=== PATIENT | male | born 1945 | race Caucasian/White ===

== ENCOUNTER 2020-03-14 05:13 | Inpatient (IN) | payer MEDICARE, SELFPAY ==
[2020-03-14] VITALS (24 sets, daily range): BP systolic 134–193; BP diastolic 56–108; PULSE 81–117; RESP 10–38; TEMP 36.2–36.9; O2SAT 91–100; BMI 36.4
--- NOTE | ~2020-03-14 | XR_ITS ---
EXAMINATION: XR chest 2V EXAM DATE: 03/14/2020 06:10 INDICATION: Weakness, rapid heart rate. TECHNIQUE: Frontal and lateral projections of the chest obtained and reviewed. Comparison is made to prior examination from 12/01/2012. FINDINGS: The lungs are clear. There are no pleural effusions. The cardiomediastinal silhouette is within normal limits. There is no pneumothorax suspected. The bones and soft tissues are unremarkab le. IMPRESSION: No acute cardiopulmonary findings. Reviewed, dictated and finalized at location A. NING PROGRAM MANAGER
--- NOTE | 2020-03-14 05:19 | ECG_ITS ---
Measurements Intervals [place] Rate: 120 P: 83 NC: 185 QRS: 40 QRSD: 90 T: 43 QT: 345 QTc: 487 Interpretive Statements SINUS TACHYCARDIA BASELINE ARTIFACT- I, III, AVL ABNORMAL ECG Electronically Signed On 03-14-2020 14:35:27 UPSETTER SETTER UP by Armani Hickman D.O.
--- NOTE | 2020-03-14 05:31 | ED.CHESTPAIN ---
HPI - Chest Pain General Chief Complaint: Chest Pain Stated Complaint: funny feeling in chest History of Present Illness HPI narrative: Patient is a 74-year-old male who presents ER with chest discomfort. Patient reports around 4:30 AM he developed some left-sided chest discomfort. No radiation. Associated with elevated heart rate and elevated blood pressure. Pain has gone down at this time. Reports throughout the day yesterday he was more fatigued than typical and having some mild left-sided back pain. Reports she had a family member do a adjustment on him and he felt like the pain went away. He has no nausea/vomiting/diaphoresis. No infectious symptoms. Denies previous cardiac issues. Related Data Home Medications Medication Instructions Recorded Confirmed blood sugar diagnostic #10 each 04/13/19 02/15/20 lancets 23 gauge #25 each 04/13/19 02/15/20 Allergies Allergy/AdvReac Type Severity Reaction Status Date / Time levofloxacin Allergy Mild HAND RASH Verified 02/15/20 14:07 Penicillins Allergy Unknown UNKNOWN Verified 02/15/20 14:07 Review of Systems Review of Systems: All systems reviewed & are unremarkable except as noted in HPI and below Constitutional: Constitutional: Denies chills, Denies fever(s) and Denies weakness Cardiovascular: Cardiovascular: Reports chest pain and Denies radiating jaw, neck or arm pain Comments: Dyspnea on exertion Respiratory: Respiratory: Denies cough and Reports dyspnea Gastrointestinal: Gastrointestinal: Denies abdominal pain, Denies nausea and Denies vomiting Musculoskeletal: Musculoskeletal: Reports back pain and Denies muscle cramps PMFSH Past Medical History Medical History (Updated 03/14/20 @ 07:02 by Syd Voss MD) Anxiety H/O malignant neoplasm of prostate H/O poliomyelitis Late effects of poliomyelitis Obesity Type 2 diabetes mellitus Surgical History Surgical History (Updated 03/14/20 @ 05:38 by Syd Voss MD) History of prostatectomy Social History Social History (Updated 03/14/20 @ 05:38 by Syd Voss MD) Smoking status: Never smoker Exam Narrative: Exam Narrative: GENERAL: Well-appearing, well-nourished, and in no acute distress. HEAD: Normocephalic, atraumatic. ENT: Mucous membranes moist. CHEST: Clear to auscultation. No respiratory distress. HEART: Tachycardic and regular.. Normal peripheral pulses. ABDOMEN: Soft, nontender, nondistended. EXTREMITIES: Normal range of motion. 1+ edema. SKIN: Warm, dry, no rash. NEURO: Alert and oriented x3. PSYCH: Normal mood and affect. Course Course Emergency Course: Patient informed of results. Accepted by hospitalist and will be seen by Dr. Nichols. Heparin started. Hydralazine for BP. Vital Signs Vital signs: Vital Signs Temperature 98.5 F 03/14/20 05:12 Pulse Rate 117 H 03/14/20 05:12 Respiratory Rate 16 03/14/20 05:12 Blood Pressure 193/108 H 03/14/20 05:12 Pulse Oximetry 96 03/14/20 05:12 Temperature 98.5 F 03/14/20 05:12 Pulse Rate 117 H 03/14/20 05:12 Respiratory Rate 16 03/14/20 05:12 Blood Pressure 193/108 H 03/14/20 05:12 Pulse Oximetry 96 03/14/20 05:12 MDM - Chest Pain Lab Data Result diagrams: 03/14/20 05:34 03/14/20 05:34 Labs: Lab Results 03/14/20 03/14/20 03/14/20 Range/Units 05:34 05:34 05:34 WBC 12.7 H (4.5-10.0) K/mm3 RBC 4.88 (4.6-6.20) M/mm3 Hgb 15.6 (14.0-18.0) g/dL Hct 45.2 (42.0-52.0) % MCV 92.6 (80-100) fl MCH 32.0 (26-34) pg MCHC 34.5 (32-36) g/dl RDW 13.1 (11.5-14.5) % Plt Count 283 (150-375) k/mm3 MPV 10.1 (7.4-10.4) fl Immature Gran % (Auto) 0.4 (0-0.5) % Neut % (Auto) 71.8 (45.5-73.1) % Lymph % (Auto) 16.5 L (18.3-44.2) % [place] % (Auto) 7.2 (2.6-8.5) % Eos % (Auto) 3.4 (0-4.4) % Baso % (Auto) 0.7 (0.2-1.2) % Lymph # (Auto) 2.09 (0.9-3.2) K/mm3 [place] # (Auto) 0.9 H (0.1-
[2020-03-14 05:43] LABS: Basophils Absolute Auto 0.1 K/mm3 (0.0-0.1); Basophils Percent Auto 0.7 % (0.2-1.2); Eosinophils Absolute Auto 0.4 K/mm3 (0-0.3); Eosinophils Percent Auto 3.4 % (0-4.4); Hematocrit 45.2 % (42.0-52.0); Hemoglobin 15.6 g/dL (14.0-18.0); Immature Granulocyte Absolute 0.05 K/mm3 (0.00-0.031); Immature Granulocyte Percent A 0.4 % (0-0.5); Lymphocytes Absolute Auto 2.09 K/mm3 (0.9-3.2); Lymphocytes Percent Auto 16.5 % (18.3-44.2); Mean Corpuscular HGB Conc 34.5 g/dl (32-36); Mean Corpuscular Volume 92.6 fl (80-100); Mean Platelet Volume 10.1 fl (7.4-10.4); Monocytes Absolute Auto 0.9 K/mm3 (0.1-0.6); Monocytes Percent Auto 7.2 % (2.6-8.5); Neutrophils Absolute Auto 9.1 K/mm3 (1.3-6.7); Neutrophils Percent Auto 71.8 % (45.5-73.1); Platelet Count Result 283 k/mm3 (150-375); Red Blood Count 4.88 M/mm3 (4.6-6.20); Red Cell Distribution Width 13.1 % (11.5-14.5); White Blood Count 12.7 K/mm3 (4.5-10.0)
[2020-03-14 05:54] LABS: INR 0.9; Prothrombin Time 13.2 Seconds (11.1-14.7)
[2020-03-14 05:55] LABS: Partial Thromboplastin Time 30.4 SECONDS (22.3-36.8)
[2020-03-14 05:58] LABS: Anion Gap 12 mmol/L (8-16); Blood Urea Nitrogen 13 mg/dL (9-20); Calcium 10.2 mg/dL (8.4-10.2); Carbon Dioxide 25 mmol/L (22-30); Chloride 98 mmol/L (98-107); Estimated CRCL calculation 74 ml/min; Estimated Glomerular Filt Rate > 60; Glucose 181 mg/dL (75-110); Potassium 3.8 mmol/L (3.4-5.0); Sodium 135 mmol/L (137-145)
[2020-03-14 06:01] LABS: D Dimer < 0.22 ug/mL (<0.48)
[2020-03-14] MEDS: hydrALAZINE HCL 20 MG/ML VIAL 10 MG IV PUSH ×2 (06:47→15:00)
[2020-03-14] MEDS: HEPARIN SODIUM 5,000 UNITS/ML VIAL 4000 UNITS IV PUSH (06:47)
[2020-03-14] MEDS: HEPARIN SOD/D5W 100 UNITS/ML 25,000 UNITS/250 ML BAG 10 UNITS IV CONT (06:48)
--- NOTE | 2020-03-14 09:17 | PM.CNCAR ---
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 - he has non ST elevation myocardial infarction in the setting of hypertensive emergency. - Patient presents with atypical chest pain intermittent for 2 days, currently resolved. - Initial troponin I was 5.53, then increased to 6.37, and will continue to trend troponin I. - EKG with sinus tachycardia 120 beats per minute and evidence of anterior ST depression of 1 mm in leads V3 through V4. - Begin aspirin 325 mg once with aspirin 81 mg daily subsequently. - Began intravenous heparin infusion for 24 hours. - Began rosuvastatin 20 mg daily. - To improve blood pressure and heart rate control, began metoprolol tartrate 50 mg b.i.d.. -Obtain echo to evaluate cardiac structure and function. -Obtain left heart catheterization for definitive evaluation for coronary artery disease given marked troponin I elevation, scheduled at 1400 on 03/14/[address] Clyde Collins. Risks and benefits of the procedure discussed with the patient and he agrees to proceed. (2) Malignant hypertension: Code(s): I10 - Essential (primary) hypertension Status: Acute Assessment and Plan: -blood pressure was severely elevated on presentation but has improved following administration of hydralazine in the emergency department initially. -began metoprolol tartrate 50 mg b.i.d. for improved blood pressure and heart rate control in setting of non ST elevation myocardial infarction. -He had normal TSH. (3) Obesity: Code(s): E66.9 - Obesity, unspecified Status: Acute Assessment and Plan: - 20 lb weight loss needed in the coming months. - anticipate need for evaluation for sleep apnea as an outpatient given his marked hypertension, chronic back muscle atrophy, and morbid obesity. (4) Type 2 diabetes mellitus: Code(s): E11.9 - Type 2 diabetes mellitus without complications Status: Acute Assessment and Plan: -Optimization of diabetic control as per primary service. -hold his metformin pre and post left heart catheterization. (5) Hyperlipidemia associated with type 2 diabetes mellitus: Code(s): E11.69 - Type 2 diabetes mellitus with other specified complication; E78.5 - Hyperlipidemia, unspecified Status: Acute Assessment and Plan: - patient had LDL 126 this admission. - began rosuvastatin 20 mg daily given his non ST elevation myocardial infarction. 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 Patient reports he was at work on the day prior to his current presentation when he noted increased fatigue as well as some vague left-sided chest discomfort, in addition to elevated blood pressure of 160/110. 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 he had additional left-sided chest discomfort without radiation with a sense of generalized weakness and with elevated blood pressure 160/120 at home. This vague left-sided chest discomfort continued intermittently for several hours prompting his presentation t
--- NOTE | 2020-03-14 09:24 | ECG_ITS ---
Measurements Intervals [place] Rate: 103 P: 54 [place]: 190 QRS: 18 QRSD: 93 T: 26 QT: 346 QTc: 454 Interpretive Statements SINUS TACHYCARDIA NONSPECIFIC ST & T-WAVE ABNORMALITY- DIFFUSE LEADS BASELINE ARTIFACT- III BORDERLINE ECG Electronically Signed On 03-14-2020 14:45:59 CRUISE STAFF MEMBER by Armani Hickman D.O.
--- NOTE | 2020-03-14 09:30 | ECHO_ITS ---
Patient Info Name: Gurinder Gtz Age: 74 years : 1945 Gender: Male Ht: 69 in Wt: 245 lbs BSA: 2.37 m2 HR: 88 bpm BP: 193 / 108 mmHg Technical Quality: Fair Exam Date: 03/14/2020 11:32 AM Exam Location: [facility] Pulmonary Exam Room: [facility] Patient Status: Inpatient Admit Date: 03/14/2020 Staff Ordering Physician: Kenyon Gabriel MD Back Seam Stitcher: Latanya Angela RDCS Attending Provider: David Ohara MD Referring Physician: Nery RAMOS; Exam Type: CA echo doppler color flow Study Info Indications - NSTEMI Complete two-dimensional, color flow and Doppler transthoracic echocardiogram is performed. Summary 1. Complete two-dimensional, color flow and Doppler transthoracic echocardiogram is performed. 2. Left ventricular systolic function is normal, estimated at 45-50%. 3. There is mildly increased left ventricular wall thickness. 4. There is moderate aortic valve sclerosis. 5. There is mild to moderate aortic valve stenosis. 6. There is mild tricuspid valve regurgitation. 7. No pulmonary hypertension, estimated pulmonary arterial systolic pressure is 23 mmHg. Left Ventricle Left ventricular chamber dimension is normal. Left ventricular systolic function is normal, estimated at 45-50%. There is mildly increased left ventricular wall thickness. Left ventricular septal wall motion is normal. The left ventricular diastolic function is normal. Right Ventricle Right ventricular chamber dimension is normal. Right ventricular systolic function is normal. Left Atria Left atrial chamber dimension is mildly enlarged. Right Atria Right atrial chamber dimension is normal. Aortic Valve The aortic valve is trileaflet. There is moderate aortic valve sclerosis. There is mild to moderate aortic valve stenosis. There is trace aortic valve regurgitation. Pulmonic Valve The pulmonic valve is normal. There is no pulmonic valve stenosis. There is no pulmonic regurgitation. Mitral Valve The mitral valve has normal leaflets. There is no mitral valve stenosis. There is trace mitral valve regurgitation. Tricuspid Valve The tricuspid valve leaflets are normal. There is no significant tricuspid valve stenosis. There is mild tricuspid valve regurgitation. No pulmonary hypertension, estimated pulmonary arterial systolic pressure is 23 mmHg. Pericardium/Pleural The pericardium appears normal. There is no pericardial effusion. Inferior Vena Cava Normal inferior vena cava with >50% collapse upon inspiration consistent with normal right atrial pressure, 10 mmHg. Aorta The aortic root size at the sinus of Valsalva is normal. The prox ascending aorta size is normal. Left Ventricular Outflow Tract Name Value Normal LVOT 2D LVOT Diameter 2.1 cm LVOT Doppler LVOT Peak Gradient 3 mmHg LVOT Mean Gradient 2 mmHg LVOT VTI 22 cm LVOT VTI/AV VTI Ratio 0.4 LVOT Stroke Volume 75 ml LVOT CO 16.0 l/min
[2020-03-14 09:38] LABS: Magnesium 2.3 mg/dL (1.6-2.3)
[2020-03-14 09:40] LABS: Cholesterol 181 mg/dL (0-200); HDL Direct 52 mg/dL; Triglycerides 118 mg/dL (<150)
[2020-03-14] MEDS: ASPIRIN 81 MG CHEWABLE TABLET 324 MG PO (09:42)
[2020-03-14 09:50] LABS: LDL Cholesterol Direct 126 mg/dL
--- NOTE | 2020-03-14 09:55 | PC.NURSE ---
This RN called ED and received report from DEAN Estevez.
[2020-03-14] MEDS: METOPROLOL TARTRATE 50 MG TAB PO ×2 (10:57→12:16)
[2020-03-14] MEDS: ROSUVASTATIN 10 MG TABLET 20 MG PO (10:57)
[2020-03-14] MEDS: SODIUM CHLORIDE 0.9% IV 500 ML 80 ML IV CONT (11:03)
--- NOTE | 2020-03-14 11:17 | ADMGEN ---
This patient, Gurinder Gtz Jr., was admitted to IMU Room 205-01. Patient/family oriented to hospital policies and general routines including ID bracelet, bed and alarms, visiting hours, pain management, procedures, bathroom and other care routines, personal items, smoking policy, room service/diet, and visiting hours. Information on how to activate the Rapid Response Team has been discussed. Patient/Family are encouraged to report perceived risks to care and to ask questions if they do not understand what they are told or what they should do.
--- NOTE | 2020-03-14 12:25 | WPDMODSED ---
Moderate Sedation Note-Pt Data Patient Data Allergies Allergy/AdvReac Type Severity Reaction Status Date / Time levofloxacin Allergy Mild HAND RASH Verified 02/15/20 14:07 Penicillins Allergy Unknown UNKNOWN Verified 02/15/20 14:07 Home Medications Medication Instructions Recorded Confirmed Type blood sugar diagnostic #10 each 04/13/19 03/14/20 History lancets 23 gauge #25 each 04/13/19 03/14/20 History metformin 500 mg tablet 500 mg PO BID #180 tablet 10/12/19 03/14/20 Rx pioglitazone 30 mg tablet 30 mg PO DAILY #90 tablet 10/16/19 03/14/20 Rx Current Medications: Active Medications Aspirin (Aspirin 81 Mg Enteric Tablet) 81 mg PO QAM [facility] Heparin Sodium (Porcine) (Heparin Sodium 5,000 Units/Ml Vial) 4,000 units IV PUSH PRN PRN PRN Reason: aPTT less than 55 seconds Heparin Sodium (Porcine) (Heparin Sodium 5,000 Units/Ml Vial) 3,500 units IV PUSH PRN PRN PRN Reason: aPTT 55 - 70 seconds Heparin Sodium/Dextrose (Heparin Sodium/D5w 100 Units/Ml) 25,000 units in 250 mls @ 10 mls/hr IV CONT .Q24H [facility]; Protocol Last Admin: 03/14/20 06:48 Dose: 1,000 units/hr, 10 mls/hr Documented by: Acetaminophen (Ofirmev 1,000 Mg Ivpb) 1,000 mg in 100 mls @ 400 mls/hr IVPB Q6H PRN PRN Reason: Mild Pain (1-3) or Fever Stop: 03/15/20 06:28 Sodium Chloride (Normal Saline Iv) 500 mls @ 80 mls/hr IV CONT .Q6H15M [facility] Last Admin: 03/14/20 11:03 Dose: 80 mls/hr Documented by: Metoprolol Tartrate (Metoprolol Tartrate 50 Mg Tab) 50 mg PO Q12HR [facility] Last Admin: 03/14/20 10:57 Dose: 50 mg Documented by: Morphine Sulfate (Morphine Sulfate (*Crx) 4 Mg/Ml Inj) 4 mg IV PUSH Q2H PRN PRN Reason: Pain Rated 7-10 Nitroglycerin (Nitroglycerin Sl 0.4 Mg Tablet) 0.4 mg SUBLINGUAL Q5MIN PRN PRN Reason: Chest Pain Ondansetron HCl (Ondansetron Inj 4 Mg/2 Ml Vial) 4 mg IV PUSH Q4H PRN PRN Reason: Nausea Rosuvastatin Calcium (Rosuvastatin 10 Mg Tablet) 20 mg PO QAM [facility] Last Admin: 03/14/20 10:57 Dose: 20 mg Documented by: Sedation/Anesthesia: No previous sedation/anesthesia problems (including family history). [facility] Past Medical History Medical History Anxiety H/O malignant neoplasm of prostate H/O poliomyelitis Late effects of poliomyelitis Obesity Type 2 diabetes mellitus Surgical History Surgical History History of prostatectomy Social History Social History Smoking status: Never smoker Alcohol intake: never Substance use: never Substance use type: does not use Gender identity (if verbalized by the patient): Male Spiritual care concerns: Yes Mod Sed Physical Exam Physical Exam Pre Procedural Exam: Normal: Appearance, Eyes, Ears, Nose, Neck, Throat, Airway, Lungs, Heart Size, Heart Rate, Heart Rhythm, Neuro Exam, Abdomen, Liver, Kidneys, Spleen, Breasts, Genitalia, Extremities and Skin Hours since solid foods: 8 Hours since liquid intake: 8 Internal Medicine - PN: Obj Da Vital Signs Vital Signs: Vital Signs - 24 hr 03/14/20 05:12 03/14/20 07:02 03/14/20 07:16 Temperature 36.9 C Pulse Rate 117 H 116 H 116 H Respiratory Rate 16 19 19 Blood Pressure 193/108 H 162/95 H 159/82 H Pulse Oximetry 96 97 91 03/14/20 07:32 03/14/20 07:47 03/14/20 08:17 Temperature Pulse Rate 117 H 111 H 110 H Respiratory Rate 19 19 20 Blood Pressure 160/93 H 154/67 H 140/78 Pulse Oximetry 97 97 95 03/14/20 08:31 03/14/20 09:02 03/14/20 09:32 Temperature Pulse Rate 108 H 115 H 107 H Respiratory Rate 38 H 22 H 19 Blood Pressure 144/88 H 156/94 H 167/85 H Pulse Oximetry 92 96 03/14/20 09:57 03/14/20 10:25 03/14/20 10:57 Temperature 36.8 C Pulse Rate 106 H 106 H 102 H Respiratory Rate 18 20 Blood Pressure 155/84 H 161/93 H Pulse Oximetry 94 98 03/14/20 12:16 Temperature Pulse Rate 89 Respiratory Rate Blood Pressure Pulse Oxi
--- NOTE | 2020-03-14 12:50 | PM.IMHP ---
H&P: HPI History of Present Illness Date/Time: 03/14/20 12:50 Chief complaint: nstemi/malignant hypertension Narrative: Gurinder Gtz Jr. is a 74 year old male with DM here for chest discomfort. Patient while at work yesterday had episode feeling diaphoretic without other symptoms which resolved. He states that he did not feel right when he returned home. Blood pressure was elevated 160/110. On recheck later that evening blood pressure improved. He does not have a history of hypertension. He has diabetes that is well controlled. He takes Actos and metformin. He has been diabetic for about 5 years. He has is cholesterol checked regularly and it has been normal. Lifelong nonsmoker. He has no history of stroke, myocardial infarction, coronary disease. He has never had a stress test. He exercises 3 days a week using his stationary bike about 10-15 minutes per sitting. Around 430 this morning, patient awoke with 'funny feeling' in his chest. He denies chest pain. He also had his legs were shaking. Blood pressure was 160/120. He did not check a glucose. No jaw pain or arm pain. No shortness of breath or nausea. No cough. No fever or chills. He contacted EMS and was brought to the emergency room for evaluation. In the emergency room his blood pressure was 193/108. His 1st troponin was 5.5. Chest x-ray was clear. EKG shows sinus tachycardia but no acute ischemic findings. He was started on heparin drip. He had been given aspirin. He was admitted for further care. Cardiology been consulted. Review of Systems Review of Systems: All systems reviewed & are unremarkable except as noted in HPI and below [facility] Past Medical History Medical History Anxiety H/O malignant neoplasm of prostate H/O poliomyelitis Late effects of poliomyelitis Obesity Type 2 diabetes mellitus Surgical History Surgical History History of prostatectomy Family History Family History (Updated 03/14/20 @ 15:56 by Ike Adrian MD) Mother Diabetes mellitus Father Heart disease in his 70's Social History Social History (Updated 03/14/20 @ 15:51 by Ike Adrian MD) Social History: His 2 months ago. He has been under a lot of stress related to the loss of his and financial issues as well. lifelong nonsmoker. No alcohol or drug use. Lives alone. He is a full code. He nominates Yoandy Gtz to be the individual who would make medical decisions for him if he is not able. Smoking status: Never smoker Alcohol intake: never Substance use: never Substance use type: does not use Gender identity (if verbalized by the patient): Male Spiritual care concerns: Yes Meds Home Medications and Allergies Home Medications Medication Instructions Recorded Confirmed Type blood sugar diagnostic #10 each 04/13/19 03/14/20 History lancets 23 gauge #25 each 04/13/19 03/14/20 History metformin 500 mg tablet 500 mg PO BID #180 tablet 10/12/19 03/14/20 Rx pioglitazone 30 mg tablet 30 mg PO DAILY #90 tablet 10/16/19 03/14/20 Rx Allergies Allergy/AdvReac Type Severity Reaction Status Date / Time levofloxacin Allergy Mild HAND RASH Verified 02/15/20 14:07 Penicillins Allergy Unknown UNKNOWN Verified 02/15/20 14:07 Vital Signs Vital Signs - 24 hr 03/14/20 05:12 03/14/20 07:02 03/14/20 07:16 Temperature 98.5 F Pulse Rate 117 H 116 H 116 H Respiratory Rate 16 19 19 Blood Pressure 193/108 H 162/95 H 159/82 H Pulse Oximetry 96 97 91 03/14/20 07:32 03/14/20 07:47 03/14/20 08:17 Temperature Pulse Rate 117 H 111 H 110 H Respiratory Rate 19 19 20 Blood Pressure 160/93 H 154/67 H 140/78 Pulse Oximetry 97 97 95 03/14/20 08:31 03/14/20 09:02 03/14/20 09:32 Temperature Pulse Rate 108 H 115 H 107 H Respiratory Rate 38 H 22 H 19 Blood Pressure 144/88 H 156/94
--- NOTE | 2020-03-14 14:09 | PM.PNCARD ---
Subjective Date/time seen: 03/14/20 14:09 Had cardiac catheterization today revealing 3 vessel coronary disease with totally occluded mid LAD but seems to be calcified vessel, attempted angioplasty but could not pass the wire due to chronicity of the lesion is probably is a chronic total occlusion. He would need to be transferred for coronary bypass surgery Objective Data Vital Signs Vital Signs: Vital Signs - 24 hr 03/14/20 05:12 03/14/20 07:02 03/14/20 07:16 Temperature 36.9 C Pulse Rate 117 H 116 H 116 H Respiratory Rate 16 19 19 Blood Pressure 193/108 H 162/95 H 159/82 H Pulse Oximetry 96 97 91 03/14/20 07:32 03/14/20 07:47 03/14/20 08:17 Temperature Pulse Rate 117 H 111 H 110 H Respiratory Rate 19 19 20 Blood Pressure 160/93 H 154/67 H 140/78 Pulse Oximetry 97 97 95 03/14/20 08:31 03/14/20 09:02 03/14/20 09:32 Temperature Pulse Rate 108 H 115 H 107 H Respiratory Rate 38 H 22 H 19 Blood Pressure 144/88 H 156/94 H 167/85 H Pulse Oximetry 92 96 03/14/20 09:57 03/14/20 10:25 03/14/20 10:57 Temperature 36.8 C Pulse Rate 106 H 106 H 102 H Respiratory Rate 18 20 Blood Pressure 155/84 H 161/93 H Pulse Oximetry 94 98 03/14/20 12:16 03/14/20 13:55 Temperature Pulse Rate 89 85 Respiratory Rate 22 H Blood Pressure 171/96 H Pulse Oximetry 96 Meds/Results Medications: Active Medications Generic Name Dose Route Start Last Admin Trade Name Freq PRN Reason Stop Dose Admin Aspirin 81 mg 03/15/20 09:00 Aspirin 81 Mg Enteric Tablet PO [facility] Heparin Sodium (Porcine) 4,000 units 03/14/20 06:21 Heparin Sodium 5,000 Units/Ml Vial IV PUSH PRN PRN aPTT less than 55 seconds Heparin Sodium (Porcine) 3,500 units 03/14/20 06:21 Heparin Sodium 5,000 Units/Ml Vial IV PUSH PRN PRN aPTT 55 - 70 seconds Heparin Sodium/Dextrose 25,000 units in 250 mls @ 10 mls/hr 03/14/20 06:25 03/14/20 06:48 Heparin Sodium/D5w 100 Units/Ml IV CONT 1,000 units/hr .Q24H [facility] 10 mls/hr Administration Protocol 1,000 UNITS/HR Acetaminophen 1,000 mg in 100 mls @ 400 mls/hr 03/14/20 06:27 Ofirmev 1,000 Mg Ivpb IVPB 03/15/20 06:28 Q6H PRN Mild Pain (1-3) or Fever Sodium Chloride 500 mls @ 80 mls/hr 03/14/20 09:30 03/14/20 11:03 Normal Saline Iv IV CONT 80 mls/hr .Q6H15M [facility]ON Administration Metoprolol Tartrate 50 mg 03/14/20 09:30 03/14/20 10:57 Metoprolol Tartrate 50 Mg Tab PO 50 mg Q12HR [facility] Administration Morphine Sulfate 4 mg 03/14/20 06:27 Morphine Sulfate (*Crx) 4 Mg/Ml Inj IV PUSH Q2H PRN Pain Rated 7-10 Nitroglycerin 0.4 mg 03/14/20 06:27 Nitroglycerin Sl 0.4 Mg Tablet SUBLINGUAL Q5MIN PRN Chest Pain Ondansetron HCl 4 mg 03/14/20 06:27 Ondansetron Inj 4 Mg/2 Ml Vial IV PUSH Q4H PRN Nausea Rosuvastatin Calcium 20 mg 03/14/20 09:00 03/14/20 10:57 Rosuvastatin 10 Mg Tablet PO 20 mg QAM [facility]ON Administration Radiology Results: ITS Impressions Chest X-Ray 03/14/20 06:30 IMPRESSION: No acute cardiopulmonary findings. Labs Labs: Laboratory Results - last 24 hr 03/14/20 03/14/20 03/14/20 05:34 05:34 05:34 WBC 12.7 H RBC 4.88 Hgb 15.6 Hct 45.2 MCV 92.6 MCH 32.0 MCHC 34.5 RDW 13.1 Plt Count 283 MPV 10.1 Immature Gran % (Auto) 0.4 Neut % (Auto) 71.8 Lymph % (Auto) 16.5 L [place] % (Auto) 7.2 Eos % (Auto) 3.4 Baso % (Auto) 0.7 Lymph # (Auto) 2.09 [place] # (Auto) 0.9 H Eos # (Auto) 0.4 H Baso # (Auto) 0.1 Abs Immat Gran (auto) 0.05 H Absolute Neuts (auto) 9.1 H Absolute Nucleated RBC 0.0 Nucleated RBC % 0.0 PT 13.2 INR 0.9 APTT 30.4 D-Dimer < 0.22 Sodium 135 L Potassium 3.8 Chloride 98 Carbon Dioxide 25 Anion Gap 12 BUN 13 Creatinine 0.90 Estim Creat Clear Calc 74 Estimated GFR > 60 Glucose 181 H
--- NOTE | 2020-03-14 14:11 | P.PCNCC_ITS ---
Cardiac Cath Procedure Note Date of procedure:: 03/14/20 Performing physician:: Clyde Collins MD Procedure: 1. Left heart catheterization, selective coronary angiogram. 2. Left ventricular angiogram. 3. Attempted balloon angioplasty to the mid LAD, was unsuccessful 4. Angio-Seal device for arterial hemostasis 3. Conscious sedation, starting time is 12:30, ending time is 13:45 Qa Architect: Dr. Clyde Collins Complications: None. Sedation: Conscious sedation, local anesthesia, using 1 mg of Versed said, 25 mcg of fentanyl, and using 1% lidocaine for local anesthesia. History: 74 years old gentleman with history of hypertension dyslipidemia, and diabetes mellitus, was admitted to the hospital due to chest pain, noted to have elevated troponin as high as 5, upon arrival to the hospital his pain improved with nitroglycerin and heparin, but his troponin was significantly elevated, after further stabilization was brought to the warehouse general laborer for elective cardiac catheterization for definitive diagnosis of coronary disease Technique: After informed consent was obtained from patient, was brought to the warehouse general laborer, put in the warehouse general laborer table, prepped and draped in usual sterile fashion. Five Luxembourger sheath was inserted into the right common femoral artery, through the sheath 5 Luxembourger JL4 catheter inserted, advanced to the left coronary artery, left coronary artery angiogram was obtained. The catheter was exchanged over guidewire into a 5 Luxembourger JR4 catheter, advanced to the right coronary artery, right coronary artery angiogram was obtained. The catheter was withdrawn the sheath was exchanged into 6 Luxembourger sheath, CLS 4.0 guide was used, repeat angiogram was done, BMW wire was inserted advanced to the LAD and subsequently to the 1st diagonal branch, another wire was Social Work Coordinator wire inserted to the LAD, upon reaching the lesion could not pass a wire, used balloon to support the wire but still could not pass the wire due to significant chronicity and calcification of the lesion. After this attempt the procedure was stopped, and wire was withdrawn and guiding catheter was withdrawn, The catheter then was exchanged over guidewire into this 5 Luxembourger pigtail catheter, advanced to left ventricle, left ventricular angiogram was obtained. The catheter then was pulled, the sheath was pulled applying Angio-Seal device for arterial hemostasis. Patient tolerated the procedure no complication, taken from the warehouse general laborer to his room in stable condition stable vital signs. Hemodynamics: aortic pressure 176/80 . LV pressure 184/04 with LVEDP of 22 mmHg, there is 6 mm gradient across the aortic valve noted Angiographic findings: Left main: Medium size artery with significant calcification and diffuse 25-40% disease Lad medium size artery showed proximal LAD ulcerated plaque lesion, followed by mid LAD calcified total occlusion, 1st diagonal branch showed diffuse calcified disease, the LAD seems to be filled lately by collaterals from the RCA Left circumflex artery, medium size artery, with proximal 75% disease RCA: Dominant vessel, he was significant calcification, no major disease at the body of the RCA with a significant disease in the PDA and PLV 90% disease LV: Normal size left ventricle with mild left ventricular systolic dysfunction, anterior hypokinesis EF 45% Summary: Three-vessel coronary disease with totally occluded LAD but seems to be chronic, and calcified, with disease of the OM and distal RCA Recommendation: Continue with aspirin and heparin, he will need to have bypass surgery with QIU to LAD venous graft to diagonal branch obtuse marginal and distal RCA. Will arrange for transfer to [facility] for that
[2020-03-14 14:15] LABS: Glucose Point of Care 184 (65-105)
--- NOTE | 2020-03-14 14:52 | SUR.PHASEII ---
Pt. noted to be hypertensive with BP of 187/92. MD Collins made aware. See MAR. Will continue to monitor pt.
[2020-03-14 16:56] LABS: Glucose Point of Care 192 (65-105)
[2020-03-14 20:50] LABS: Glucose Point of Care 193 (65-105)
--- NOTE | 2020-03-14 20:54 | PC.NURSE ---
transfered to [facility] in [place] rm 205-2 with heperin drip at 1000 unit/hr via herbert
--- NOTE | 2020-03-19 15:15 | PM.TDS ---
Transfer Discharge Sum: Prov Provider Date of admission: 03/14/20 06:28 Primary care physician: Gurinder Haynes MD Admitting clinician: David Ohara MD Consults: 03/14/20 06:29 Consult to Physician Routine Comment: Consulting Provider: Clyde Collins farm equipment engine mechanic/MD group to consult: rod Reason for consultation: nstemi, malignant htn Has provider been notified: Yes Attending physician on discharge: Ike Adrian Discharging clinician: Ike Adrian Anticipated date of transfer: 03/14/20 DS: Admitting Diagnosis Admitting Diagnosis Admitting Diagnosis: nstemi/malignant hypertension DS: Discharge Diagnosis Discharge Diagnosis (1) Non-ST elevation NC (NSTEMI): Code(s): I21.4 - Non-ST elevation (NSTEMI) myocardial infarction Status: Acute (2) Malignant hypertension: Code(s): I10 - Essential (primary) hypertension Status: Acute (3) Obesity: Code(s): E66.9 - Obesity, unspecified Status: Acute (4) Late effects of poliomyelitis: Code(s): B91 - Sequelae of poliomyelitis Status: Acute (5) Type 2 diabetes mellitus: Code(s): E11.9 - Type 2 diabetes mellitus without complications Status: Acute (6) Hyperlipidemia associated with type 2 diabetes mellitus: Code(s): E11.69 - Type 2 diabetes mellitus with other specified complication; E78.5 - Hyperlipidemia, unspecified Status: Acute Transfer Discharge Sum: Med Medications Active and Home Medications: Home Medications blood sugar diagnostic #10 each 04/13/19 [History Confirmed 03/14/20] lancets 23 gauge #25 each 04/13/19 [History Confirmed 03/14/20] metformin 500 mg tablet 500 mg PO BID #180 tablet 10/12/19 [Rx Confirmed 03/14/20] pioglitazone 30 mg tablet 30 mg PO DAILY #90 tablet 10/16/19 [Rx Confirmed 03/14/20] Transfer Discharge Sum: Hosp Hospital Course Hospital course: Gurinder Gtz Jr. is a 74 year old male with DM here for chest discomfort. Blood pressure had elevated BP160/110 prior to admission. He does not have a history of hypertension. He contacted EMS and was brought to the emergency room for evaluation. In the emergency room his blood pressure was 193/108. His 1st troponin was 5.5. Chest x-ray was clear. EKG shows sinus tachycardia but no acute ischemic findings. He was started on heparin drip. He had been given aspirin. He was admitted for further care to the IMU and seen by Cardiology. Troponin trended up to 8.78. Repeat EKG again showing no ischemic changes. He underwent a left heart catheterization. Patient was found to have three-vessel coronary artery disease with total occlusion of the LAD. There was an attempt to recannulate the LAD but this seemed to be more of a chronic occlusion. Plan is for patient to be transferred to [facility] for CABG. Crestor added to his regimen. Lisinopril added for persistent hypertension. Echocardiogram shows decreased LV systolic function at 45-50%. He has moderate aortic stenosis. Has normal diastolic function. Patient appears to have tolerated the procedure well. Transfer arrangements were arranged by Cardiology. Time Spent with Patient Time attestation: Total time spent providing and/or coordinating transfer services: 40 minutes Total time spent: Greater than 30 minutes Exam Narrative: Exam Narrative: AF 98.2 161/93 89 20 98% ra Gen - well-nourished, well-developed male in no acute respiratory distress who is nontoxic-appearing lying semi recumbent in bed HEENT - normocephalic. Atraumatic. Pupils equal round and reactive. Extraocular motions intact. Sclera are injected and anicteric. Nares patent. Oropharynx was poorly visualized. Endentulous top row. No oral lesions. Moist mucous membranes. Tongue was midline. Palate gloria symmetrically. No facial asymmetry. Neck - neck was supple. No dominant adenopathy or masses. 2+ carotid upstrokes without bruits. Chest - lung
== END 2020-03-14 21:07 | disposition short-term general hospital (02) | DRG 282 ==
LOC: ANHED 07:02 → ANHIMU 09:19
PROVIDERS: Internal Medicine Cardiovascular Disease; Specialist; Admitting Provider Family Medicine; Emergency Provider Emergency Medicine; PCP Internal Medicine; Visit Provider Internal Medicine
PROC: 4A023N7 Measurement of Cardiac Sampling and Pressure, Left Heart, Percutaneous Approach (ICD-10-PCS; CPT 93452; principal; 2020-03-14 15:00)
PROC: 4A023N7 Measurement of Cardiac Sampling and Pressure, Left Heart, Percutaneous Approach (ICD-10-PCS; CPT 92920; 2020-03-14 15:00)
PROC: 4A023N7 Measurement of Cardiac Sampling and Pressure, Left Heart, Percutaneous Approach (ICD-10-PCS; 2020-03-14 15:00)
DX: I21.4 Non-ST elevation (NSTEMI) myocardial infarction (principal); I25.10 Atherosclerotic heart disease of native coronary artery without angina pectoris; I25.82 Chronic total occlusion of coronary artery; I10 Essential (primary) hypertension; E66.9 Obesity, unspecified; Z68.36 Body mass index [BMI] 36.0-36.9, adult; E11.9 Type 2 diabetes mellitus without complications; E78.5 Hyperlipidemia, unspecified; F41.9 Anxiety disorder, unspecified; Z85.46 Personal history of malignant neoplasm of prostate; Z86.12 Personal history of poliomyelitis
CPT/HCPCS: 36415; 71046; 80048; 80061; 83735; 84443; 84484; 85025; 85380; 85610; 85730; 92920; 93005; 93306; 93458; 99291; A9270; C1725; C1760; C1769; C1887; C1894; G0269; J0360; J0583; J1644; J2250; J3010; J7040

== ENCOUNTER 2020-03-26 13:46 | Emergency (ER) | payer MEDICARE, SELFPAY ==
--- NOTE | ~2020-03-26 | XR_ITS ---
EXAMINATION: XR chest 2V EXAM DATE: 03/26/2020 14:17 INDICATION: Feels heart racing, States cardiac surgery 1 week ago. TECHNIQUE: Frontal and lateral projections of the chest obtained and reviewed. Comparison is made to prior examination from 03/14/2020. FINDINGS: Sternotomy wires are present without findings to suggest sternal dehiscence. Probable smal l bilateral pleural effusions. Mild cardiomegaly. No confluent consolidation or pneumothorax. There a re mild bony degenerative changes. Patient has diffuse idiopathic skeletal hyperostosis (DISH). IMPRESSION: 1. Mild cardiomegaly. 2. Small pleural effusions. Reviewed, dictated and finalized at location B. RAL PRACTITIONER
[2020-03-26 13:45] VITALS: BP 145/78; PULSE 102; RESP 18; TEMP 37.6
[2020-03-26 13:54] VITALS: PULSE 101
--- NOTE | 2020-03-26 13:54 | ECG_ITS ---
Measurements Intervals Mack Rate: 91 P: 17 VT: 176 QRS: 34 QRSD: 81 T: -19 QT: 360 QTc: 444 Interpretive Statements SINUS RHYTHM BORDERLINE ST-T WAVE ABNORMALITY- DIFFUSE LEADS BASELINE ARTIFACT- I, II, III, AVR, AVL, AVF BORDERLINE ECG Electronically Signed On 03-26-2020 14:59:55 ASSOCIATE PROFESSOR OF ANTHROPOLOGY by Armani Hickman D.O.
[2020-03-26 14:47] LABS: Basophils Absolute Auto 0.1 K/mm3 (0.0-0.1); Basophils Percent Auto 0.4 % (0.2-1.2); Eosinophils Absolute Auto 0.3 K/mm3 (0-0.3); Eosinophils Percent Auto 1.7 % (0-4.4); Hematocrit 37.2 % (42.0-52.0); Hemoglobin 12.7 g/dL (14.0-18.0); Immature Granulocyte Absolute 0.27 K/mm3 (0.00-0.031); Immature Granulocyte Percent A 1.6 % (0-0.5); Lymphocytes Absolute Auto 1.49 K/mm3 (0.9-3.2); Lymphocytes Percent Auto 8.6 % (18.3-44.2); Mean Corpuscular HGB Conc 34.1 g/dl (32-36); Mean Corpuscular Hemoglobin 31.7 pg (26-34); Mean Corpuscular Volume 92.8 fl (80-100); Mean Platelet Volume 10.1 fl (7.4-10.4); Monocytes Absolute Auto 1.3 K/mm3 (0.1-0.6); Monocytes Percent Auto 7.5 % (2.6-8.5); Neutrophils Absolute Auto 13.8 K/mm3 (1.3-6.7); Neutrophils Percent Auto 80.2 % (45.5-73.1); Platelet Count Result 373 k/mm3 (150-375); Red Blood Count 4.01 M/mm3 (4.6-6.20); Red Cell Distribution Width 13.2 % (11.5-14.5); White Blood Count 17.3 K/mm3 (4.5-10.0)
[2020-03-26 14:57] LABS: INR 1.1; Prothrombin Time 15.1 Seconds (11.1-14.7)
[2020-03-26 14:58] LABS: Partial Thromboplastin Time 37.4 SECONDS (22.3-36.8); Potassium 4.2 mmol/L (3.4-5.0)
[2020-03-26 15:02] LABS: Anion Gap 10 mmol/L (8-16); Blood Urea Nitrogen 24 mg/dL (9-20); Calcium 8.8 mg/dL (8.4-10.2); Carbon Dioxide 25 mmol/L (22-30); Chloride 98 mmol/L (98-107); Estimated CRCL calculation 65 ml/min; Estimated Glomerular Filt Rate > 60; Glucose 157 mg/dL (75-110); Sodium 133 mmol/L (137-145)
[2020-03-26 15:17] LABS: Troponin I 0.236 ng/mL (0.000-0.034)
--- NOTE | 2020-03-26 15:47 | ED.ARRPALP ---
HPI - Arrhythmia/Palpitations General Chief Complaint: Arrhythmia/Palpitations Stated Complaint: ELEVATED HR Time Seen by Provider: 03/26/20 14:47 Source: patient and family Mode of arrival: EMS Limitations: no limitations History of Present Illness HPI narrative: 68-year-old with a history of hypertension, diabetes s/p CABG a week ago at [facility] here with complaints of palpitation since this morning. Patient states that he woke up felt his heart rate was beating fast checked his pulse it was about 140 he. Patient states that he has taken his metoprolol after which his heart rate subsided. He had another episode around noon this afternoon and at that time his heart rate was in 160s. Patient states that he took a half a tablet of metoprolol and since then he has been feeling better. He denies any chest pain or chest discomfort. No history of nausea or vomiting. Patient states that he just had open heart surgery and he has been taking vitamins which would make him nauseated. MD complaint: rapid heart beat Duration: now resolved Severity: moderate Related Data Home Medications Medication Instructions Recorded Confirmed blood sugar diagnostic #10 each 04/13/19 03/14/20 lancets 23 gauge #25 each 04/13/19 03/14/20 Allergies Allergy/AdvReac Type Severity Reaction Status Date / Time levofloxacin Allergy Mild HAND RASH Verified 03/26/20 13:56 Penicillins Allergy Unknown UNKNOWN Verified 03/26/20 13:56 Review of Systems Review of Systems: All systems reviewed & are unremarkable except as noted in HPI and below Constitutional: Constitutional: Reports no additional constitutional complaints Eyes: Eyes: Reports no additional eye complaints ENT: Reports system reviewed and no additional complaints, except as documented Cardiovascular: Cardiovascular: Reports as per HPI Respiratory: Respiratory: Reports as per HPI Gastrointestinal: Gastrointestinal: Reports no additional gastrointestinal complaints [facility] Past Medical History Medical History Anxiety H/O malignant neoplasm of prostate H/O poliomyelitis Late effects of poliomyelitis Obesity Type 2 diabetes mellitus Surgical History Surgical History History of prostatectomy Family History Family History Mother Diabetes mellitus Father Heart disease in his 70's Social History Social History Social History: His 2 months ago. He has been under a lot of stress related to the loss of his and financial issues as well. lifelong nonsmoker. No alcohol or drug use. Lives alone. He is a full code. He nominates Yoandy Gtz to be the individual who would make medical decisions for him if he is not able. Smoking status: Never smoker Alcohol intake: never Substance use: never Substance use type: does not use Gender identity (if verbalized by the patient): Male Spiritual care concerns: Yes Exam Narrative: Exam Narrative: GENERAL: Well-appearing, well-nourished, and in no acute distress. HEAD: Normocephalic, atraumatic. EYES: PERRLA and EOMI. NECK: Supple. CHEST: Clear to auscultation. No respiratory distress. Midline sternotomy incision, scar looks healthy. HEART: Regular rate and rhythm. No murmur heard. Normal peripheral pulses. ABDOMEN: Soft, nontender, nondistended, normal active bowel sounds. EXTREMITIES: Normal range of motion. No edema. SKIN: Warm, dry, no rash. NEURO: No focal deficits. Alert and oriented x3. PSYCH: Normal mood and affect. Course Course Emergency Course: Patient at this time is asymptomatic his EKG and rhythm strip are normal sinus rhythm for past couple hours she has been in the ER. Discussed his lab work, chest x-ray and EKG findings with the patient and the family. Als
[2020-03-26 16:10] VITALS: BP 126/74; PULSE 21; RESP 17; O2SAT 95
== END 2020-03-26 16:11 | disposition home or self-care (01) ==
PROVIDERS: Emergency Medicine; Emergency Provider Family Medicine; PCP Internal Medicine
DX: R00.2 Palpitations (principal); I25.10 Atherosclerotic heart disease of native coronary artery without angina pectoris; Z95.1 Presence of aortocoronary bypass graft; E11.9 Type 2 diabetes mellitus without complications; I10 Essential (primary) hypertension; Z85.46 Personal history of malignant neoplasm of prostate; Z86.12 Personal history of poliomyelitis; E66.9 Obesity, unspecified; Z68.32 Body mass index [BMI] 32.0-32.9, adult; Z90.79 Acquired absence of other genital organ(s); I51.7 Cardiomegaly; R94.31 Abnormal electrocardiogram [ECG] [EKG]
CPT/HCPCS: 36415; 71046; 80048; 84484; 85025; 85610; 85730; 93005; 99284

== ENCOUNTER 2023-07-30 16:03 | Outpatient (CLI) | payer MEDICARE, SELFPAY ==
[2023-07-30 18:56] LABS: Alanine Aminotransferase 27 U/L (6-50); Albumin Level 4.4 g/dL (3.5-5.1); Alkaline Phosphatase 93 U/L (38-126); Anion Gap 10 mmol/L (4-12); Aspartate Amino Transferase 44 U/L (17-59); Bilirubin,Total 0.6 mg/dL (0.2-1.3); Blood Urea Nitrogen 14 mg/dL (9-20); Calcium 9.9 mg/dL (8.4-10.2); Carbon Dioxide 26 mmol/L (22-30); Chloride 98 mmol/L (98-107); Estimated Glomerular Filt Rate > 60; Glucose 145 mg/dL (65-110); Potassium 4.4 mmol/L (3.4-5.0); Sodium 134 mmol/L (137-145)
[2023-07-30 18:59] LABS: Hemoglobin A1C 7.6 % (<5.7)
[2023-07-30 19:17] LABS: Creatinine Urine 135.4 mg/dL
[2023-07-30 19:22] LABS: MALB Creatinine Ratio 11.2 mg/g (0-30); Microalbumin Urine Random 15.1 mg/L (0-16.7)
== END 2023-07-30 16:04 | disposition home or self-care (01) ==
LOC: ANHGOSHLAB 16:06
PROVIDERS: PCP Family Medicine; Visit Provider Family Medicine
DX: E78.5 Hyperlipidemia, unspecified (principal); E11.69 Type 2 diabetes mellitus with other specified complication; Z13.228 Encounter for screening for other metabolic disorders
CPT/HCPCS: 36415; 80053; 82043; 83036